=== PATIENT | female | born 1970 | race Caucasian/White ===

== ENCOUNTER → 2021-02-11 | Outpatient (CLI) | payer OTHER ==
[~2021-02-11] MED LIST: CINN500C2 PO; GARL10002 PO; METF10007 PO
[2021-02-11 09:33] LABS: MICROSCOPIC AUTO
[2021-02-11 09:36] LABS: BASOPHILS % (AUTO) 1 % (0-1); EOSINOPHILS % (AUTO) 2 % (1-7); LYMPHOCYTES % (AUTO) 24 % (22-44); MEAN CORPUSCULAR HEMOGLOBIN 32.1 pg (27.0-34.8); MEAN CORPUSCULAR HGB CONC 33.8 g/dL (32.4-35.8); MEAN PLATELET VOLUME 9.2 fL (7.4-10.4); MONOCYTES % (AUTO) 5 % (2-9); NEUTROPHILS % (AUTO) 68 % (42-75); PLATELET COUNT 302 x10^3/uL (130-400); RED BLOOD COUNT 4.72 x10^6/uL (3.82-5.3); RED CELL DISTRIBUTION WIDTH 13.9 % (9.6-15.2)
[2021-02-11 09:40] LABS: MD NO
[2021-02-11 09:42] LABS: ANION GAP 3 mmol/L (5-15); CALCIUM 9.2 mg/dL (8.5-10.1); CHLORIDE 104 mmol/L (98-107); CREATININE 0.71 mg/dL (0.55-1.02)
[2021-02-11 09:43] LABS: ALANINE AMINOTRANSFERASE 41 U/L (12-78); ALBUMIN 3.9 g/dL (3.4-5.0)
[2021-02-11 09:47] LABS: ALKALINE PHOSPHATASE 61 U/L (45-117); BILIRUBIN,TOTAL 0.6 mg/dL (0.2-1.0); TOTAL PROTEIN 7.6 g/dL (6.4-8.2)
== END | disposition home or self-care (01) ==
LOC: STAR 08:21
PROVIDERS: ATTEND Obstetrics & Gynecology Gynecology
DX: Z01.812 Encounter for preprocedural laboratory examination (principal); Z20.822 Contact with and (suspected) exposure to COVID-19; N92.0 Excessive and frequent menstruation with regular cycle; D25.9 Leiomyoma of uterus, unspecified; I45.10 Unspecified right bundle-branch block
CPT/HCPCS: 36415; 80053; 81001; 84703; 85025; 87086; 93005; U0003; U0005

== ENCOUNTER 2021-02-15 05:18 | Day surgery (SDC) | payer BC, OTHER ==
[~2021-02-15] VITALS: Ht 157.5 cm; Wt 99.0 kg
[2021-02-15] MEDS ORDERED: CHLORHEXIDINE 15 ML UDC PO ONE (06:30)
[2021-02-15] MEDS ORDERED: LACTATED RINGERS 1,000 ML IV SCH (06:30)
[2021-02-15] MEDS ORDERED: MIDAZOLAM 1 MG/ML, 2ML ONE (07:00)
[2021-02-15] MEDS ORDERED: FENTANYL PF 250 MCG/5ML ONE (07:00)
[2021-02-15] MEDS ORDERED: CEFAZOLIN 1,000 MG ONE ×2 (07:01→11:28)
[2021-02-15] MEDS ORDERED: PROPOFOL 10 MG/ML, 20ML ONE ×2 (07:01→11:28)
[2021-02-15] MEDS ORDERED: DEXAMETHASONE 4 MG/ML, 1ML ONE ×3 (07:02→11:28)
[2021-02-15] MEDS ORDERED: LIDOCAINE/PF 1%, 30ML ONE (07:18)
[2021-02-15] MEDS ORDERED: EPINEPHRINE 1 MG/ML, 1ML ONE (07:18)
[2021-02-15] MEDS ORDERED: INDIGO CARMINE 0.8%, 5ML ONE (07:18)
[2021-02-15] MEDS ORDERED: hydrALAzine 20 MG/ML, 1ML IV PRN (07:30)
[2021-02-15] MEDS ORDERED: MEPERIDINE/PF 25MG/0.5ML IVPush PRN (07:30)
[2021-02-15] MEDS ORDERED: LABETALOL 5MG/ML, 20ML IV PRN (07:30)
[2021-02-15] MEDS ORDERED: PROMETHAZINE 25 MG/ML, 1ML IVPush PRN (07:30)
[2021-02-15] MEDS ORDERED: HYDROmorphone 1 MG/ML, 1ML INJ IVPush PRN (07:30)
[2021-02-15] MEDS ORDERED: FENTANYL PF 100 MCG/2ML IV PRN (07:30)
[2021-02-15] MEDS ORDERED: ONDANSETRON 2MG/ML, 2ML IVPush PRN (07:30)
[2021-02-15] MEDS ORDERED: ACETAMINOPHEN 325 MG TABLET PO PRN (07:30)
[2021-02-15] MEDS ORDERED: ONDANSETRON 2MG/ML, 2ML ONE (08:18)
[2021-02-15] MEDS ORDERED: KETOROLAC 30 MG/1 ML ONE ×2 (08:18→11:28)
[2021-02-15] MEDS ORDERED: NEOSTIGMINE 1 MG/ML, 10ML ONE ×2 (08:56→11:28)
[2021-02-15] MEDS ORDERED: GLYCOPYRROLATE 0.2MG/1ML, 5ML ONE ×2 (08:56→11:28)
[2021-02-15] MEDS ORDERED: FUROSEMIDE 20 MG/2 ML ONE (09:09)
[2021-02-15] MEDS ORDERED: FENTANYL PF 100 MCG/2ML ONE ×2 (09:29→11:28)
[2021-02-15] MEDS ORDERED: OXYcodone 5 MG/5 ML ORAL.SOL UDC ONE (09:30)
[2021-02-15] MEDS: OXYcodone 5 MG/5 ML ORAL.SOL UDC PO PRN ×2 (09:46→14:28)
[2021-02-15] MEDS ORDERED: MIDAZOLAM 1 MG/ML, 5ML ONE (11:28)
[2021-02-15] MEDS ORDERED: ROCURONIUM 10MG/ML,5ML ONE (11:28)
[2021-02-15] MEDS ORDERED: METRONIDAZOLE PMX 500MG/100ML ONE (11:28)
== END 2021-02-15 15:00 | disposition home or self-care (01) ==
LOC: OUT 05:18
PROVIDERS: ATTEND Obstetrics & Gynecology Gynecology
DX: N92.0 Excessive and frequent menstruation with regular cycle (principal); N94.6 Dysmenorrhea, unspecified; D25.9 Leiomyoma of uterus, unspecified; N83.292 Other ovarian cyst, left side; E11.9 Type 2 diabetes mellitus without complications; E66.9 Obesity, unspecified; Z79.84 Long term (current) use of oral hypoglycemic drugs; Z79.899 Other long term (current) drug therapy; Z82.49 Family history of ischemic heart disease and other diseases of the circulatory system
CPT/HCPCS: 58260; 81025; 82962; 85014; 88307; J0171; J0690; J1100; J1885; J2250; J2405; J2704; J2710; J3010; J7120; J1940